=== PATIENT | female | born 2000 | race Two or more races ===

== ENCOUNTER → 2025-08-10 | Outpatient (CLI) | payer OTHER, SELFPAY ==
--- NOTE | 2025-08-09 09:50 | TONS_PTH ---
PATIENT: JIMI MSOS LOC: [facility] #:[id number] AGE/SX: 24/F ROOM: RE08/10/[address]: Dr. Tulio Oro MD : 2000 BED: DIS: 08/10/2025 SPEC #: [id number] RECD: 08/10/25 15:30 STATUS: MAURICIO KJ #: [id number] KYLE: 08/09/25 09:[address]: Tulio Oro DEPT: SURGICAL PATHOLOGY RECD BY: Juan Jose Jin Tissues: A - Tonsil, NOS Procedures: Surgery Specimen Level III HEADER OPERATION: Tonsillectomy PRE-OP DIAGNOSIS: Chronic tonsillectomy, hypertrophy of tonsils TISSUE SUBMITTED: A- Bilateral tonsils *right tonsil pinned* MICROSCOPIC DIAGNOSIS A. Tonsils, bilateral tonsillectomy: Lymphoid follicular hyperplasia MICROSCOPIC DESCRIPTION Slides are reviewed. GROSS DESCRIPTION A. Received in formalin labeled with the patient's name and date of . Designated as bilateral tonsils are two trejo tonsils, each surfaced by trejo-pink, focally congested mucosa. There is a pin designating the right tonsil which is inked black. They measure 3.4 x 2.1 x 1.4 cm (left) and 3.1 x 2.1 x 1.4 cm (right). Sectioning reveals trejo-pink, focally erythematous cryptic cut surfaces devoid of grumous material. Junior Accounting [employer] sections are submitted as follows: A1: Left tonsilA2: Right tonsil TN 08/11/2025 CPT:[id number]
== END | disposition home or self-care (01) ==
LOC: LABSPEC 15:45
PROVIDERS: Referring Provider Otolaryngology; Visit Provider Otolaryngology
DX: J35.01 Chronic tonsillitis (principal)
CPT/HCPCS: 88304